=== PATIENT | male | born 1950 | race Caucasian/White ===

== ENCOUNTER 2018-07-17 18:53 | Emergency (ER) | payer MEDICARE ==
[~2018-07-17] VITALS: Ht 180.3 cm; Wt 77.1 kg
[2018-07-17] MEDS ORDERED: DOCUSATE SODIUM 100 MG/10 ML LIQUID UDC NG ONE (19:30)
[2018-07-17] MEDS ORDERED: DOCUSATE SODIUM 100 MG/10 ML LIQUID UDC ONE (19:34)
[2018-07-17 22:51] VITALS: BP 153/97
== END 2018-07-17 22:52 | disposition home or self-care (01) ==
LOC: ER 18:53
DX: H61.23 Impacted cerumen, bilateral (principal); B35.1 Tinea unguium
CPT/HCPCS: A4663

== ENCOUNTER 2022-06-14 18:11 | Emergency (ER) | payer MEDICARE ==
[~2022-06-14] VITALS: Ht 180.3 cm; Wt 77.1 kg
[2022-06-14 19:35] VITALS: BP 140/80
--- NOTE | 2022-06-14 19:35 | NUR ---
Patient discharged to home in stable condition. Written and verbal after care instructions given. Patient verbalizes understanding of instructions. Stressed follow up or return to ER for worsening s/s.
== END 2022-06-14 19:36 | disposition home or self-care (01) ==
LOC: ER 18:11
DX: S00.85XA Superficial foreign body of other part of head, initial encounter (principal); W34.010A Accidental discharge of airgun, initial encounter; Y92.89 Other specified places as the place of occurrence of the external cause
CPT/HCPCS: A4663